=== PATIENT | female | born 1980 | race African-American/Black ===

== ENCOUNTER 2016-09-15 10:00 | Emergency (ER) | payer MEDICAID ==
[~2016-09-15] VITALS: Ht 167.6 cm; Wt 57.0 kg
[2016-09-15] MEDS ORDERED: KETOROLAC 60MG/2ML VIAL IM STA (10:53)
[2016-09-15] MEDS ORDERED: METOCLOPRAMIDE HCL 10MG TABLET PO ONE (11:00)
[2016-09-15 11:46] LABS: HEMATOCRIT. 40.4 % (36.0-48.0); HEMOGLOBIN. 13.2 g/dL (12.0-16.0); MEAN CORPUSCULAR HEMOGLOBIN 27.6 pg (28.0-32.0); MEAN CORPUSCULAR HGB CONC 32.7 g/dL (31.0-37.0); MEAN CORPUSCULAR VOLUME 84.4 fL (81.0-99.0); MEAN PLATELET VOLUME 7.5 fl (7.4-10.4); PLATELET 223 x1000/uL (130-400); RED BLOOD CELL COUNT 4.79 mill/uL (4.2-5.4); RED CELL DISTRIBUTION WIDTH 15.4 % (11.6-14.6); WHITE BLOOD COUNT 6.5 x1000/uL (4.5-11.0)
[2016-09-15 11:47] LABS: DIFFERENTIAL COMMENT 1
[2016-09-15 11:54] LABS: ALBUMIN 3.6 g/dL (3.4-5.0); CALCIUM 8.8 mg/dL (8.5-10.1); CHLORIDE 96 mEq/L (98-107); INDEX HEMOLYSI 1 (1-3); INDEX ICTERIC 1 (1-4); INDEX LIPEMIC 1 (1-3); INR 1.1; LIPASE 171 IU/L (73-393); PARTIAL THROMBOPLASTIN TIME 33.4 sec (24.0-34.0); PROTHROMBIN TIME 11.3 sec
[2016-09-15 11:56] LABS: CLARITY URINE CLEAR (CLEAR); COLOR URINE YELLOW (YELLOW); GLUCOSE URINE NEGATIVE (NEGATIVE); KETONES URINE 1+ (NEGATIVE); LEUKOCYTE ESTERASE URINE NEGATIVE (NEGATIVE); NITRITE URINE NEGATIVE (NEGATIVE); OCCULT BLOOD URINE TRACE (NEGATIVE); PH URINE 6.5 (4.5-8.0); PROTEIN URINE TRACE (NEGATIVE); SPECIFIC GRAVITY URINE 1.009 (1.005-1.030); UROBILINOGEN URINE 0.2 E.U./dL (0.2-1.0)
[2016-09-15 11:59] LABS: ALANINE AMINOTRANSFERASE 22 IU/L (13-61); ANION GAP 13; CARBON DIOXIDE 27 mEq/L (21-32); ETHANOL BLOOD < 10 mg/dL; UREA NITROGEN BLOOD 5 mg/dL (7-21); eGFR > 60 mL/min (>60)
[2016-09-15 12:02] LABS: HCG SCREEN NEGATIVE
[2016-09-15 12:06] LABS: *AMPHETAMINES SCREEN URINE NEGATIVE (NEGATIVE); *BARBITURATES SCREEN URINE NEGATIVE (NEGATIVE); *BENZODIAZEPINES SCREEN URINE NEGATIVE (NEGATIVE); *COCAINE SCREEN URINE NEGATIVE (NEGATIVE); ECSTASY MDMA SCREEN URINE NEGATIVE (NEGATIVE); METHADONE URINE SCREEN NEGATIVE (NEGATIVE); OPIATES URINE SCREEN NEGATIVE (NEGATIVE); PHENCYCLIDINE URINE SCREEN NEGATIVE (NEGATIVE)
[2016-09-15 12:12] LABS: ANISOCYTOSIS 1+; PLATELET ESTIMATE NORMAL
[2016-09-15 12:15] LABS: WBC URINE 0-2 /hpf (0-2)
[2016-09-15 12:19] LABS: BACTERIA URINE 1+; RBC URINE 0-2 /hpf (0-2); SQUAMOUS EPITHELIAL CELL URINE FEW /lpf (RARE/1+)
[2016-09-15 12:25] LABS: CANNABINOID URINE SCREEN PRESUMTIVE POSITIVE (NEGATIVE)
[2016-09-15] MEDS ORDERED: POTASSIUM CHLORIDE 20MEQ TABLET SR PO ONE (12:30)
[2016-09-15 13:56] VITALS: BP 105/52
== END 2016-09-15 13:58 | disposition home or self-care (01) ==
LOC: ER 10:37
DX: B34.9 Viral infection, unspecified (principal); G44.40 Drug-induced headache, not elsewhere classified, not intractable; S09.90XA Unspecified injury of head, initial encounter; F12.10 Cannabis abuse, uncomplicated; T40.2X5A Adverse effect of other opioids, initial encounter; F17.210 Nicotine dependence, cigarettes, uncomplicated; Y04.2XXA Assault by strike against or bumped into by another person, initial encounter
CPT/HCPCS: 36415; 80053; 80305; 81001; 83690; 84703; 85025; 85610; 85730; 96372; 99284; G0482; J1885; J8597